=== PATIENT | male | born 1975 | race Caucasian/White ===

== ENCOUNTER 2016-10-01 19:14 | Inpatient (IN) | payer OTHER ==
[2016-10-01 19:36] VITALS: BMI 29.8
--- NOTE | 2016-10-01 19:45 | HP ---
CIWA Score - CIWA Score Nausea/Vomitin-Mild Nausea/No Vomiting Muscle Tremors: 4-Moderate,w/Arms Extend Anxiety: 3 Agitation: 4-Moderately Restless Paroxysmal Sweats: 1-Minimal Palms Moist Orientation: 3-Disoriented Date>2 days Tacttile Disturbances: 0-None Auditory Disturbances: 0-None Visual Disturbances: 0-None Headache: 3-Moderate CIWA-Ar Total Score: 19 Admission ROS BHS - HPI Chief Complaint: withdrawal sx Allergies/Adverse Reactions: Allergies Allergy/AdvReac Type Severity Reaction Status Date / Time No Known Allergies Allergy Verified 09/20/14 14:11 History of Present Illness: 41 years old male with long history of alcohol nicotine dependence has diabetes ii hypertension hyperlipidemia and bipolar ii disorder is admitted to detox Exam Limitations: No Limitations - Ebola screening Have you traveled outside of the country in the last 21 days: No Have you had contact with anyone from an Ebola affected area: No Have you been sick,other than usual withdrawal symptoms: No Do you have a fever: No - Review of Systems Constitutional: Chills, Changes in sleep, Weight Stable EENT: reports: No Symptoms Reported Respiratory: reports: No Symptoms reported Cardiac: reports: No Symptoms Reported GI: reports: Nausea, Poor Fluid Intake, Abdominal cramping : reports: No Symptoms Reported Musculoskeletal: reports: No Symptoms Reported Integumentary: reports: No Symptoms Reported Neuro: reports: Tremors Endocrine: reports: No Symptoms Reported Hematology: reports: No Symptoms Reported Psychiatric: reports: Judgement Intact, Mood/Affect Appropiate Other Systems: Reviewed and Negative Patient History - Patient Medical History Hx Anemia: No Hx Asthma: No Hx Chronic Obstructive Pulmonary Disease (COPD): No Hx Cancer: No Hx Cardiac Disorders: No Hx Congestive Heart Failure: No Hx Hypertension: Yes Hx Hypercholesterolemia: Yes Hx Pacemaker: No HX Cerebrovascular Accident: No Hx Seizures: No Hx Dementia: No Hx Diabetes: Yes Hx Gastrointestinal Disorders: No Hx Liver Disease: No Hx Genitourinary Disorders: No Hx Sexually Transmitted Disorders: No Hx Renal Disease (ESRD): No Hx Thyroid Disease: No Hx Human Immunodeficiency Virus (HIV): No Hx Hepatitis C: No Hx Depression: No Hx Suicide Attempt: No Hx Bipolar Disorder: Yes Hx Schizophrenia: No - Patient Surgical History Past Surgical History: No Hx Neurologic Surgery: No Hx Cataract Extraction: No Hx Cardiac Surgery: No Hx Lung Surgery: No Hx Breast Surgery: No Hx Breast Biopsy: No Hx Abdominal Surgery: No Hx Appendectomy: No Hx Cholecystectomy: No Hx Genitourinary Surgery: No Hx Orthopedic Surgery: No - PPD History Previous Implant?: Yes Documented Results: Negative w/proof Implanted On Prior [facility] Admission?: Yes Date: 08/10/15 Results: 0 mm PPD to be Administered?: Yes - Smoking Cessation Smoking history: Current every day smoker Have you smoked in the past 12 months: Yes Aproximately how many cigarettes per day: 2 Cigars Per Day: 0 Hx Chewing Tobacco Use: No Initiated information on smoking cessation: Yes 'Breaking Loose' booklet given: 10/01/16 - Substance & Tx. History Hx Alcohol Use: Yes Hx Substance Use: Yes Substance Use Type: Alcohol, Marijuana Hx Substance Use Treatment: Yes - Substances Abused Alcohol Route: Oral Frequency: Daily Amount used: pint volka Age of first use: 17 Date of Last Use: 10/01/16 Family Disease History - Family Disease History Family Disease History: Diabetes: Sister, [place]: Mother (d eceased), Other: Father (never met) Admission Physical Exam S - Vital Signs Vital Signs: Vital Signs - 24 hr 10/01/16 19:34 Temperature 98.3 F Pulse Rate 96 H Respiratory 20 Rate Blood Pressure 161/93 - Physical General Appearance: Yes: Nourished, Appropriately Dressed, Mild Distress, Moderate Distress, Alcohol on Breath, Tremorous, Irritable, Sweating, Anxious HEENTM: Yes: Hearing grossly Normal, Normal ENT Inspection, Normocephalic, Normal Voice Respiratory: Yes: Chest Non-Tender, Lungs Clear, Normal Breath Sounds, No Respiratory Distress, No Accessory Muscle Use Neck: Yes: Supple, Trachea in good position Breast: Yes: Breasts Symetrical Cardiology: Yes: Regular Rhythm, S1, S2, Tachycardia Abdominal: Yes: Non Tender, Soft Genitourinary: Yes: Within Normal Limits Back: Yes: Normal Inspection Musculoskeletal: Yes: full range of Motion, Gait Steady Extremities: Yes: Normal Range of Motion, Non-Tender, Tremors Neurological: Yes: Alert, Motor Strength 5/5, Normal Response, Depressed Affect Integumentary: Yes: Warm Lymphatic: Yes: Within Normal Limits - Diagnostic (1) Alcohol dependence with uncomplicated withdrawal Current Visit: Yes Status: Acute (2) Cannabis dependence, uncomplicated Current Visit: Yes Status: Chronic (3) Nicotine dependence Current Visit: Yes Status: Acute (4) PCP abuse Current Visit: Yes Status: Chronic (5) Type II diabetes mellitus Current Visit: Yes Status: Acute Qualifiers: Diabetes mellitus complication status: without complication Diabetes mellitus mcfp insulin use: with terminal gauger supervisor use Qualified Code(s): E11.9 - Type 2 diabetes mellitus without complications; Z79.4 - terminal gauger supervisor ( current) use of insulin Comment: kazano 1000 mg bid (6) Hypertension Current Visit: Yes Status: Acute Qualifiers: Hypertension type: essential hypertension Qualified Code(s): I10 - Essential (primary) hypertension (7) Hyperlipidemia Current Visit: Yes Status: Acute Qualifiers: Hyperlipidemia type: pure hypercholesterolemia Qualified Code(s): E78.00 - Pure hypercholesterolemia, unspecified; E78.0 - Pure hypercholesterolemia Comment: lab pending Cleared for Admission [facility] - Detox or Rehab [facility] Level of Care: Medically Managed Detox Regimen/Protocol: Librium [facility] Breath Alcohol Content Breath Alcohol Content: 0.008 Urine Drug Screen - Results Drug Screen Negative: No Urine Drug Screen Results: THC-Marijuana, PCP-Phencyclidine
[2016-10-01] MEDS ORDERED: P-EPHED 60MG/TRIPROLIDI 2.5MG TABLET PO PRN (19:52)
[2016-10-01] MEDS ORDERED: hydrOXYzine PAMOATE 50 MG CAPSULE (FP) PO PRN (19:52)
[2016-10-01] MEDS ORDERED: ACETAMINOPHEN 325 MG TABLET (FP) PO PRN (19:52)
[2016-10-01] MEDS ORDERED: chlordiazePOXIDE HCL 25 MG CAPSULE PO PRN (19:52)
[2016-10-01] MEDS ORDERED: IBUPROFEN 400 MG TABLET (FP) PO PRN (19:52)
[2016-10-01] MEDS ORDERED: MAGNESIUM CITRATE 300 ML BOTTLE PO PRN (19:52)
[2016-10-01] MEDS ORDERED: NICOTINE POLACRILEX 2 MG GUM BC PRN (19:52)
[2016-10-01] MEDS ORDERED: LOPERAMIDE HCL 2 MG CAPSULE PO PRN (19:52)
[2016-10-01] MEDS ORDERED: MAGNESIUM HYDROX 2400MG/30ML ORAL SUSPENSION 30 ML CUP PO PRN (19:52)
[2016-10-01] MEDS ORDERED: MENTHOL/PHENOL 1 EACH UD MM PRN (19:52)
[2016-10-01] MEDS ORDERED: diphenhydrAMINE HCL 50 MG CAPSULE PO PRN (19:52)
[2016-10-01] MEDS ORDERED: guaiFENesin/D-METHORPHAN HB 10 ML UNIT-DOSE CUPS PO PRN (19:52)
[2016-10-01] MEDS ORDERED: MAG HYDROX/AL HYDROX/SIMETH 30 ML UNIT-DOSE CUP PO PRN (19:52)
[2016-10-01] MEDS ORDERED: cloNIDine HCL 0.1 MG TABLET PO PRN (19:58)
[2016-10-01] MEDS ORDERED: INSULIN DETEMIR 100 UNITS/ML MDV SQ SCH (22:00)
[2016-10-01] MEDS ORDERED: THIAMINE HCL 100 MG TABLET (FP) PO SCH (22:00)
[2016-10-01] MEDS ORDERED: ATORVASTATIN CA 10 MG TABLET (FP) PO SCH (22:00)
[2016-10-01] MEDS: amLODIPine BESYLATE 5 MG TABLET (FP) PO SCH (23:00)
[2016-10-01] MEDS: chlordiazePOXIDE HCL 25 MG CAPSULE PO SCH (23:00)
[2016-10-01] MEDS: INSULIN SLIDING SCALE (NOVOLOG) 1 VIAL SQ SCH (23:02)
[2016-10-01 23:05] LABS: URINE APPEARANCE CLEAR; URINE BILIRUBIN NEGATIVE (NEGATIVE); URINE BLOOD NEGATIVE (NEGATIVE); URINE COLOR YELLOW; URINE GLUCOSE (UA) NEGATIVE (NEGATIVE); URINE KETONE NEGATIVE (NEGATIVE); URINE LEUK ESTERASE NEGATIVE (NEGATIVE); URINE NITRITE NEGATIVE (NEGATIVE); URINE PROTEIN NEGATIVE (NEGATIVE); URINE UROBILINOGEN 2.0 E.U/dl E.U./dl (0.2-1.0)
[2016-10-02] MEDS: chlordiazePOXIDE HCL 25 MG CAPSULE PO SCH ×3 (05:52→17:04)
[2016-10-02] MEDS ORDERED: INSULIN (NOVOLOG) ASPART 100 UNITS/ML 10ML VIAL ONE ×3 (07:37→17:03)
[2016-10-02] MEDS ORDERED: NICOTINE 14 MG/24 HOURS TOPICAL PATCH TD SCH (10:00)
[2016-10-02] MEDS ORDERED: PRENATAL VITAMINS W/ FOLIC ACID TABLET (FP) PO SCH (10:00)
[2016-10-02] MEDS ORDERED: diphenhydrAMINE HCL 25 MG CAPSULE (FP) PO PRN (10:22)
[2016-10-02 10:26] LABS: MCH 28.4 pg (25.7-33.7); MCHC 32.7 g/dl (32.0-35.9); MEAN PLT VOLUME 8.3 fl (7.5-11.1); PLATELET COUNT 238 K/MM3 (134-434); RDW 12.8 % (11.9-15.9); WHITE BLOOD COUNT 8.7 K/mm3 (4.0-10.0)
[2016-10-02] MEDS ORDERED: HYDROCORTISONE 1% TOPICAL CREAM 30 GM TUBE TP SCH (10:30)
[2016-10-02 10:45] LABS: ALBUMIN 3.6 g/dl (3.4-5.0); ALK PHOS 61 U/L (45-117); ANION GAP 7 (8-16); BILIRUBIN,TOTAL 0.5 mg/dL (0.2-1.0); CHOLESTEROL 113 mg/dL (50-200); CO2 28 mmol/L (21-32); CREATININE 0.7 mg/dL (0.7-1.3); GLUCOSE,RANDOM 112 mg/dL (74-106); LDL CHOLESTEROL (ONLY SJRH) 45 mg/dL (5-100); SGOT/AST 10 U/L (15-37); SGPT/ALT 22 U/L (12-78); TOT PROT 6.6 g/dl (6.4-8.2)
[2016-10-02] MEDS: amLODIPine BESYLATE 5 MG TABLET (FP) PO SCH (10:58)
--- NOTE | 2016-10-02 11:07 | PN ---
[facility] CIWA - CIWA Score Nausea/Vomitin Muscle Tremors: 3 Anxiety: 3 Agitation: 2 Paroxysmal Sweats: 1-Minimal Palms Moist Orientation: 0-Oriented Tacttile Disturbances: 1-Very Mild Itch/Numbness Auditory Disturbances: 1-Very Mild Visual Disturbances: 1-Very Mild Sensitivity Headache: 2-Mild CIWA-Ar Total Score: 17 BHS Progress Note (SOAP) Subjective: ALERT,IRRITABLE,ANXIOUS,INTERRUPTED SLEEP,TREMOR,RASH BOTH THIGH ITCHING CONTACT DERMATITIS Objective: 10/02/16 11:06 Vital Signs Temperature 98.1 F 10/02/16 10:00 Pulse Rate 71 10/02/16 10:00 Respiratory Rate 16 10/02/16 10:00 Blood Pressure 125/79 10/02/16 10:00 O2 Sat by Pulse Oximetry (%) EKG NSR WITH SINUS ARRHYTHMIA Laboratory Last Values WBC 8.7 K/mm3 (4.0-10.0) 10/02/16 09:30 RBC 5.07 M/mm3 (4.00-5.60) 10/02/16 09:30 Hgb 14.4 GM/dL (11.7-16.9) 10/02/16 09:30 Hct 44.1 % (35.4-49) 10/02/16 09:30 MCV 87.0 fl (80-96) 10/02/16 09:30 MCHC 32.7 g/dl (32.0-35.9) 10/02/16 09:30 RDW 12.8 % (11.9-15.9) 10/02/16 09:30 Plt Count 238 K/MM3 (134-434) 10/02/16 09:30 MPV 8.3 fl (7.5-11.1) 10/02/16 09:30 Sodium 145 mmol/L (136-145) 10/02/16 07:30 Potassium 4.0 mmol/L (3.5-5.1) 10/02/16 07:30 Chloride 110 mmol/L (98-107) H 10/02/16 07:30 Carbon Dioxide 28 mmol/L (21-32) 10/02/16 07:30 Anion Gap 7 (8-16) L 10/02/16 07:30 BUN 20 mg/dL (7-18) H 10/02/16 07:30 Creatinine 0.7 mg/dL (0.7-1.3) D 10/02/16 07:30 Creat Clearance w eGFR > 60 (>60) 10/02/16 07:30 POC Glucometer 117 UNITS (()) 10/02/16 05:53 Random Glucose 112 mg/dL (74-106) H D 10/02/16 07:30 Calcium 9.0 mg/dL (8.5-10.1) 10/02/16 07:30 Total Bilirubin 0.5 mg/dL (0.2-1.0) D 10/02/16 07:30 AST 10 U/L (15-37) L D 10/02/16 07:30 ALT 22 U/L (12-78) D 10/02/16 07:30 Alkaline Phosphatase 61 U/L (45-117) 10/02/16 07:30 Total Protein 6.6 g/dl (6.4-8.2) 10/02/16 07:30 Albumin 3.6 g/dl (3.4-5.0) 10/02/16 07:30 Triglycerides 97 mg/dL (35-160) 10/02/16 07:30 Cholesterol 113 mg/dL (50-200) 10/02/16 07:30 Total LDL Cholesterol 45 mg/dL (5-100) 10/02/16 07:30 HDL Cholesterol 58 mg/dL (40-60) 10/02/16 07:30 Urine Color Yellow 10/01/16 21:35 Urine Appearance Clear 10/01/16 21:35 Urine pH 6.0 (5.0-8.0) 10/01/16 21:35 Ur Specific [place] 1.031 (1.001-1.035) 10/01/16 21:35 Urine Protein Negative (NEGATIVE) 10/01/16 21:35 Urine Glucose (UA) Negative (NEGATIVE) 10/01/16 21:35 Urine Ketones Negative (NEGATIVE) 10/01/16 21:35 Urine Blood Negative (NEGATIVE) 10/01/16 21:35 Urine Nitrite Negative (NEGATIVE) 10/01/16 21:35 Urine Bilirubin Negative (NEGATIVE) 10/01/16 21:35 Urine Urobilinogen 2.0 e.u/dl E.U./dl (0.2-1.0) 10/01/16 21:35 Ur Leukocyte Esterase Negative (NEGATIVE) 10/01/16 21:35 Assessment: 10/02/16 11:07 WITHDRAWAL SYMPTOM Plan: CONTINUE DETOX
[2016-10-02] MEDS: INSULIN SLIDING SCALE (NOVOLOG) 1 VIAL SQ SCH ×2 (11:35→17:05)
--- NOTE | 2016-10-02 14:41 | CONSULT ---
[facility] Psychiatric Consult - Data Date of interview: 10/02/16 Admission source: [facility] Identifying data: Patient is approached for psychiatric interview.He refused." I am leving this place.There is no need to talk to you.I have nothing to say to a psychiatrist.Never mind." Staff is made aware.
[2016-10-02] MEDS ORDERED: sitaGLIPtin PHOSPHATE 100 MG TABLET (FP) PO SCH (16:30)
[2016-10-02 18:53] VITALS: BP 136/92; PULSE 73; TEMP 97.9
--- NOTE | 2016-10-02 21:27 | DS ---
[id number] Present History: Alcohol Dependence Additional Comments: patient insisted to leave the unit, refused to wait face to face with the provider agreed to consider follow up care as per arranged by the counselor refused e prescription encourage follow up closely with primary care provider and utilize emergency services if necessary Pertinent Past History: hypertension diabetes ii hyperlipidemia bipolar ii - Physical Exam Results Vital Signs: Vital Signs Temperature 97.9 F 10/02/16 18:53 Pulse Rate 73 10/02/16 18:53 Respiratory Rate 16 10/02/16 18:53 Blood Pressure 136/92 10/02/16 18:53 O2 Sat by Pulse Oximetry (%) Pertinent Admission Physical Exam Findings: withdrawal sx Laboratory Last Values WBC 8.7 K/mm3 (4.0-10.0) 10/02/16 09:30 RBC 5.07 M/mm3 (4.00-5.60) 10/02/16 09:30 Hgb 14.4 GM/dL (11.7-16.9) 10/02/16 09:30 Hct 44.1 % (35.4-49) 10/02/16 09:30 MCV 87.0 fl (80-96) 10/02/16 09:30 MCHC 32.7 g/dl (32.0-35.9) 10/02/16 09:30 RDW 12.8 % (11.9-15.9) 10/02/16 09:30 Plt Count 238 K/MM3 (134-434) 10/02/16 09:30 MPV 8.3 fl (7.5-11.1) 10/02/16 09:30 Sodium 145 mmol/L (136-145) 10/02/16 07:30 Potassium 4.0 mmol/L (3.5-5.1) 10/02/16 07:30 Chloride 110 mmol/L (98-107) H 10/02/16 07:30 Carbon Dioxide 28 mmol/L (21-32) 10/02/16 07:30 Anion Gap 7 (8-16) L 10/02/16 07:30 BUN 20 mg/dL (7-18) H 10/02/16 07:30 Creatinine 0.7 mg/dL (0.7-1.3) D 10/02/16 07:30 Creat Clearance w eGFR > 60 (>60) 10/02/16 07:30 POC Glucometer 154 UNITS (()) 10/02/16 16:48 Random Glucose 112 mg/dL (74-106) H D 10/02/16 07:30 Calcium 9.0 mg/dL (8.5-10.1) 10/02/16 07:30 Total Bilirubin 0.5 mg/dL (0.2-1.0) D 10/02/16 07:30 AST 10 U/L (15-37) L D 10/02/16 07:30 ALT 22 U/L (12-78) D 10/02/16 07:30 Alkaline Phosphatase 61 U/L (45-117) 10/02/16 07:30 Total Protein 6.6 g/dl (6.4-8.2) 10/02/16 07:30 Albumin 3.6 g/dl (3.4-5.0) 10/02/16 07:30 Triglycerides 97 mg/dL (35-160) 10/02/16 07:30 Cholesterol 113 mg/dL (50-200) 10/02/16 07:30 Total LDL Cholesterol 45 mg/dL (5-100) 10/02/16 07:30 HDL Cholesterol 58 mg/dL (40-60) 10/02/16 07:30 Urine Color Yellow 10/01/16 21:35 Urine Appearance Clear 10/01/16 21:35 Urine pH 6.0 (5.0-8.0) 10/01/16 21:35 Ur Specific [place] 1.031 (1.001-1.035) 10/01/16 21:35 Urine Protein Negative (NEGATIVE) 10/01/16 21:35 Urine Glucose (UA) Negative (NEGATIVE) 10/01/16 21:35 Urine Ketones Negative (NEGATIVE) 10/01/16 21:35 Urine Blood Negative (NEGATIVE) 10/01/16 21:35 Urine Nitrite Negative (NEGATIVE) 10/01/16 21:35 Urine Bilirubin Negative (NEGATIVE) 10/01/16 21:35 Urine Urobilinogen 2.0 e.u/dl E.U./dl (0.2-1.0) 10/01/16 21:35 Ur Leukocyte Esterase Negative (NEGATIVE) 10/01/16 21:35 RPR Titer Nonreactive (NONREACTIVE) 10/02/16 07:30 lab noted - Treatment Hospital Course: Detox Protocol Followed, Responded well - Medication Discharge Medications: Ambulatory Orders Saxagliptin HCl/Metformin HCl [Kombiglyze Xr 5-1,000 mg Tab] 2 tab PO BIDAC - Diagnosis (1) Alcohol dependence with uncomplicated withdrawal Status: Acute (2) Cannabis dependence, uncomplicated Status: Chronic (3) Nicotine dependence Status: Acute (4) Type II diabetes mellitus Status: Acute Qualifiers: Diabetes mellitus complication status: without complication Diabetes mellitus custodial insulin use: with custodial use Qualified Code(s): E11.9 - Type 2 diabetes mellitus without complications (5) Hypertension Status: Acute Qualifiers: Hypertension type: essential hypertension Qualified Code(s): I10 - Essential (primary) hypertension (6) Hyperlipidemia Status: Acute Qualifiers: Hyperlipidemia type: pure hypercholesterolemia Qualified Code(s): E78.00 - Pure hypercholesterolemia, unspecified; E78.0 - Pure hypercholesterolemia - AMA Did Patient Leave Against Medical Advice: Yes
[2016-10-02] MEDS ORDERED: chlordiazePOXIDE HCL 25 MG CAPSULE PO SCH (23:00)
[2016-10-03] MEDS ORDERED: chlordiazePOXIDE 5 MG CAPSULE PO SCH (23:00)
[2016-10-04] MEDS ORDERED: chlordiazePOXIDE HCL 10 MG CAPSULE PO SCH (23:00)
--- NOTE | 2016-10-06 17:00 | EKG ---
Test Reason : Blood Pressure : / mmHG Vent. Rate : 068 BPM Atrial Rate : 068 BPM P-R Int : 138 ms QRS Dur : 108 ms QT Int : 412 ms P-R-T Axes : 046 063 019 degrees QTc Int : 438 ms NORMAL SINUS RHYTHM WITH SINUS ARRHYTHMIA NORMAL ECG NO PREVIOUS ECGS AVAILABLE Confirmed by AVINASH DENISE MD ([id number]) on 10/06/2016 4:59:32 PM Referred By: Confirmed By:AVINASH DENISE MD
== END 2016-10-02 17:30 | disposition left against medical advice (07) | DRG 770 ==
LOC: YASAS 19:14 → Y6N 20:15
PROVIDERS: ADMIT Internal Medicine Addiction Medicine; ATTEND Internal Medicine Addiction Medicine
PROC: HZ2ZZZZ Detoxification Services for Substance Abuse Treatment (ICD-10-PCS; principal; 2016-10-02)
DX: F10.230 Alcohol dependence with withdrawal, uncomplicated (principal); F12.20 Cannabis dependence, uncomplicated; F17.210 Nicotine dependence, cigarettes, uncomplicated; I10 Essential (primary) hypertension; E11.9 Type 2 diabetes mellitus without complications; Z79.4 Long term (current) use of insulin; E78.00 Pure hypercholesterolemia, unspecified; Z59.0 Homelessness
CPT/HCPCS: 36415; 80053; 80061; 81003; 83721; 85027; 86593; 93005; 93010

== ENCOUNTER 2016-12-25 11:46 | Inpatient (IN) | payer OTHER ==
[2016-12-25 13:26] VITALS: BMI 28.7
--- NOTE | 2016-12-25 14:25 | HP ---
Admission ROS [facility] Chief Complaint: i am here for rehab from pcp,marijuana,alcohol Allergies/Adverse Reactions: Allergies Allergy/AdvReac Type Severity Reaction Status Date / Time No Known Allergies Allergy Verified 12/25/16 14:23 History of Present Illness: this 41 years old male with marijuana,pcp dependence and alcohol dependence,for rehab,last detox 10/01/16 to 10/02/16 not completed chronic low back pain nicotine dependence longest period of sobriety 2 years Exam Limitations: No Limitations - Ebola screening Have you traveled outside of the country in the last 21 days: No Have you had contact with anyone from an Ebola affected area: No Have you been sick,other than usual withdrawal symptoms: No Do you have a fever: No - Review of Systems Constitutional: No Symptoms Reported EENT: reports: No Symptoms Reported Respiratory: reports: No Symptoms reported Cardiac: reports: No Symptoms Reported GI: reports: No Symptoms Reported : reports: No Symptoms Reported Musculoskeletal: reports: No Symptoms Reported Integumentary: reports: No Symptoms Reported Neuro: reports: No Symptoms reported Endocrine: reports: No Symptoms Reported Hematology: reports: No Symptoms Reported Psychiatric: reports: No Sypmtoms Reported, Judgement Intact, Mood/Affect Appropiate, other (bipolar disorder) Patient History - Patient Medical History Hx Anemia: No Hx Asthma: No Hx Chronic Obstructive Pulmonary Disease (COPD): No Hx Cancer: No Hx Cardiac Disorders: No Hx Congestive Heart Failure: No Hx Hypertension: Yes (on med) Hx Hypercholesterolemia: Yes (on med) Hx Pacemaker: No HX Cerebrovascular Accident: No Hx Seizures: No Hx Dementia: No Hx Diabetes: Yes (on med) Hx Gastrointestinal Disorders: No Hx Liver Disease: No Hx Genitourinary Disorders: No Hx Sexually Transmitted Disorders: No Hx Renal Disease (ESRD): No Hx Thyroid Disease: No Hx Human Immunodeficiency Virus (HIV): No (last 08/04 negative) Hx Hepatitis C: No Hx Depression: No Hx Suicide Attempt: Yes (hiram f age of 15) Hx Bipolar Disorder: Yes Hx Schizophrenia: No Other Medical History: no suicidal,no homicidal - Patient Surgical History Past Surgical History: No Hx Neurologic Surgery: No Hx Cataract Extraction: No Hx Cardiac Surgery: No Hx Lung Surgery: No Hx Breast Surgery: No Hx Breast Biopsy: No Hx Abdominal Surgery: No Hx Appendectomy: No Hx Cholecystectomy: No Hx Genitourinary Surgery: No Hx Section: No Hx Orthopedic Surgery: No Anesthesia Reaction: No - PPD History Previous Implant?: Yes Documented Results: Negative w/proof Date: 10/03/16 Results: 0 mm PPD to be Administered?: No - Smoking Cessation Smoking history: Current every day smoker Have you smoked in the past 12 months: Yes Aproximately how many cigarettes per day: 2 Cigars Per Day: 0 Hx Chewing Tobacco Use: No Initiated information on smoking cessation: Yes 'Breaking Loose' booklet given: 12/25/16 - Substance & Tx. History Hx Alcohol Use: Yes Hx Substance Use: Yes Substance Use Type: Alcohol, Marijuana Hx Substance Use Treatment: Yes ([facility] 10/01/16 to 10/02/16) - Substances Abused Alcohol Route: Oral Frequency: 3-6 times per week Amount used: 1/5th of vodka Age of first use: 17 Date of Last Use: 12/21/16 Marijuana/Hashish Route: Smoking Frequency: Daily Amount used: 10$ Age of first use: 16 Date of Last Use: 12/25/16 PCP Route: Smoking Frequency: Daily Amount used: 20$ Age of first use: 16 Date of Last Use: 12/24/16 Family Disease History - Family Disease History Family Disease History: Diabetes: Sister, [place]: Mother (d eceased breast cancer), Other: Father (never met) Admission Physical Exam S - Vital Signs Vital Signs: Vital Signs - 24 hr 12/25/16 13:23 Temperature 97.8 F Pulse Rate 89 Respiratory 18 Rate Blood Pressure 118/70 - Physical General Appearance: Yes: Within Normal Limits HEENTM: Yes: Normal ENT Inspection, GIORGIO, Pharynx Normal Respiratory: Yes: Within Normal Limits, Lungs Clear, Normal Breath Sounds Neck: Yes: Within Normal Limits Breast: Yes: Within Normal Limits Cardiology: Yes: Within Normal Limits, Regular Rhythm, Regular Rate, S1, S2 Abdominal: Yes: Within Normal Limits, Normal Bowel Sounds, Non Tender, Flat, Soft Genitourinary: Yes: Within Normal Limits Back: Yes: Within Normal Limits Musculoskeletal: Yes: Within Normal Limits Extremities: Yes: Within Normal Limits Neurological: Yes: staff technologist II-XII NML intact, Fully Oriented, Alert, Motor Strength 5/5 Integumentary: Yes: Within Normal Limits Lymphatic: Yes: Within Normal Limits - Diagnostic (1) Alcohol dependence Current Visit: Yes Status: Acute (2) Bipolar disorder Current Visit: No Status: Acute (3) Hyperlipidemia Current Visit: No Status: Acute Qualifiers: Hyperlipidemia type: pure hypercholesterolemia Qualified Code(s): E78.00 - Pure hypercholesterolemia, unspecified; E78.0 - Pure hypercholesterolemia Comment: lab pending (4) Hypertension Current Visit: No Status: Acute Qualifiers: Hypertension type: essential hypertension Qualified Code(s): I10 - Essential (primary) hypertension (5) Type II diabetes mellitus Current Visit: No Status: Acute Qualifiers: Diabetes mellitus complication status: without complication Diabetes mellitus intermediate manager insulin use: with chcf use Qualified Code(s): E11.9 - Type 2 diabetes mellitus without complications Comment: kazano 1000 mg bid (6) Weight decreased Current Visit: No Status: Acute (7) Cannabis dependence, uncomplicated Current Visit: No Status: Chronic (8) PCP abuse Current Visit: No Status: Chronic (9) Nicotine dependence Current Visit: No Status: Acute Cleared for Admission BHS - Detox or Rehab Claeared for Rehab Admission: Yes S Breath Alcohol Content Breath Alcohol Content: 0 Urine Drug Screen - Results Drug Screen Negative: No Urine Drug Screen Results: THC-Marijuana, PCP-Phencyclidine, TCA-Tricyclic Antidepress
[2016-12-25] MEDS ORDERED: LOPERAMIDE HCL 2 MG CAPSULE PO PRN (14:41)
[2016-12-25] MEDS ORDERED: P-EPHED 60MG/TRIPROLIDI 2.5MG TABLET PO PRN (14:41)
[2016-12-25] MEDS ORDERED: hydrOXYzine PAMOATE 50 MG CAPSULE (FP) PO PRN (14:41)
[2016-12-25] MEDS ORDERED: ACETAMINOPHEN 325 MG TABLET (FP) PO PRN (14:41)
[2016-12-25] MEDS ORDERED: diphenhydrAMINE HCL 50 MG CAPSULE PO PRN (14:41)
[2016-12-25] MEDS ORDERED: IBUPROFEN 400 MG TABLET (FP) PO PRN (14:41)
[2016-12-25] MEDS ORDERED: MAGNESIUM HYDROX 2400MG/30ML ORAL SUSPENSION 30 ML CUP PO PRN (14:41)
[2016-12-25] MEDS ORDERED: MAG HYDROX/AL HYDROX/SIMETH 30 ML UNIT-DOSE CUP PO PRN (14:41)
[2016-12-25] MEDS ORDERED: MAGNESIUM CITRATE 300 ML BOTTLE PO PRN (14:41)
[2016-12-25] MEDS ORDERED: MENTHOL/PHENOL 1 EACH UD MM PRN (14:41)
[2016-12-25] MEDS ORDERED: guaiFENesin/D-METHORPHAN HB 10 ML UNIT-DOSE CUPS PO PRN (14:41)
[2016-12-25 16:18] LABS: MCH 28.3 pg (25.7-33.7); MCHC 32.4 g/dl (32.0-35.9); MEAN CELL VOLUME 87.6 fl (80-96); MEAN PLT VOLUME 8.5 fl (7.5-11.1); PLATELET COUNT 255 K/MM3 (134-434); RDW 13.9 % (11.9-15.9); WHITE BLOOD COUNT 7.2 K/mm3 (4.0-10.0)
[2016-12-25 16:23] LABS: ALBUMIN 3.8 g/dl (3.4-5.0); ANION GAP 10 (8-16); CALCIUM 9.1 mg/dL (8.5-10.1); CO2 24 mmol/L (21-32); COCKROFT - GAULT 157.49; CREATININE 0.8 mg/dL (0.7-1.3); GLUCOSE,RANDOM 134 mg/dL (74-106); SGOT/AST 58 U/L (15-37); SGPT/ALT 37 U/L (12-78)
[2016-12-25 16:25] LABS: ALK PHOS 62 U/L (45-117); BILIRUBIN,TOTAL 1.4 mg/dL (0.2-1.0); TOT PROT 6.7 g/dl (6.4-8.2)
[2016-12-25] MEDS: GABAPENTIN 300 MG CAPSULE (FP) PO SCH ×2 (16:58→21:17)
[2016-12-25] MEDS: CYCLOBENZAPRINE HCL 10 MG TABLET (FP) PO PRN (16:59)
[2016-12-25] MEDS: NICOTINE 14 MG/24 HOURS TOPICAL PATCH TD SCH (17:01)
[2016-12-25 17:33] LABS: URINE APPEARANCE CLEAR; URINE BILIRUBIN NEGATIVE (NEGATIVE); URINE BLOOD NEGATIVE (NEGATIVE); URINE COLOR YELLOW; URINE GLUCOSE (UA) NEGATIVE (NEGATIVE); URINE KETONE TRACE (NEGATIVE); URINE LEUK ESTERASE NEGATIVE (NEGATIVE); URINE NITRITE NEGATIVE (NEGATIVE); URINE PROTEIN NEGATIVE (NEGATIVE); URINE UROBILINOGEN NEGATIVE E.U./dl (0.2-1.0)
[2016-12-25] MEDS: PATIENT'S OWN MEDICATION (NON-FORMULARY) (Sitagliptin Phos/Metformin Hcl [Janumet 50-500 M PO SCH (17:53)
[2016-12-25] MEDS: INSULIN SLIDING SCALE (NOVOLOG) 1 VIAL SQ SCH (21:21)
[2016-12-25] MEDS ORDERED: THIAMINE HCL 100 MG TABLET (FP) PO SCH (22:00)
[2016-12-25] MEDS ORDERED: ATORVASTATIN CA 10 MG TABLET (FP) PO SCH (22:00)
[2016-12-25] MEDS ORDERED: INSULIN DETEMIR 100 UNITS/ML MDV SQ SCH (22:00)
[2016-12-26] MEDS: GABAPENTIN 300 MG CAPSULE (FP) PO SCH ×2 (06:28→14:21)
[2016-12-26] MEDS: PATIENT'S OWN MEDICATION (NON-FORMULARY) (Sitagliptin Phos/Metformin Hcl [Janumet 50-500 M PO SCH ×2 (06:29→17:01)
[2016-12-26] MEDS: CYCLOBENZAPRINE HCL 10 MG TABLET (FP) PO PRN ×2 (06:30→17:01)
[2016-12-26] MEDS: INSULIN SLIDING SCALE (NOVOLOG) 1 VIAL SQ SCH ×3 (06:40→17:00)
[2016-12-26 07:02] VITALS: BP 124/77; PULSE 68; TEMP 97.4
[2016-12-26] MEDS ORDERED: PRENATAL VITAMINS W/ FOLIC ACID TABLET (FP) PO SCH (10:00)
[2016-12-26] MEDS: NICOTINE 14 MG/24 HOURS TOPICAL PATCH TD SCH ×2 (10:33→12:43)
--- NOTE | 2016-12-26 18:15 | PN ---
BHS Progress Note Note: patient did not want to complete treatment,signed release ama,psychiatrist plant controls specialist notified by nurse
== END 2016-12-26 17:50 | disposition left against medical advice (07) | DRG 770 ==
LOC: YASAS 11:46 → Y5N 14:53
PROVIDERS: ADMIT Psychiatry & Neurology Psychiatry; ATTEND Psychiatry & Neurology Psychiatry
PROC: HZ42ZZZ Group Counseling for Substance Abuse Treatment, Cognitive-Behavioral (ICD-10-PCS; principal; 2016-12-25)
DX: F10.20 Alcohol dependence, uncomplicated (principal); F12.20 Cannabis dependence, uncomplicated; F16.10 Hallucinogen abuse, uncomplicated; F17.210 Nicotine dependence, cigarettes, uncomplicated; F31.9 Bipolar disorder, unspecified; E78.5 Hyperlipidemia, unspecified; I10 Essential (primary) hypertension; E11.9 Type 2 diabetes mellitus without complications; Z79.4 Long term (current) use of insulin; Z87.898 Personal history of other specified conditions
CPT/HCPCS: 36415; 80053; 81003; 85027; 86593

== ENCOUNTER 2021-02-27 08:34 | Inpatient (IN) | payer OTHER ==
[2021-02-27 11:43] VITALS: BMI 30.8
[2021-02-27] MEDS ORDERED: LOPERAMIDE HCL 2 MG CAPSULE PO PRN (15:07)
[2021-02-27] MEDS ORDERED: IBUPROFEN 400 MG TABLET (FP) PO PRN (15:07)
[2021-02-27] MEDS ORDERED: MAGNESIUM CITRATE 300 ML BOTTLE PO PRN (15:07)
[2021-02-27] MEDS ORDERED: ACETAMINOPHEN 325 MG TABLET (FP) PO PRN (15:07)
[2021-02-27] MEDS ORDERED: guaiFENesin 200 MG/10 ML 10 ML UNIT-DOSE CUPS PO PRN (15:07)
[2021-02-27] MEDS ORDERED: MAGNESIUM HYDROX 2400MG/30ML ORAL SUSPENSION 30 ML CUP PO PRN (15:07)
[2021-02-27] MEDS ORDERED: P-EPHED 60MG/TRIPROLIDI 2.5MG TABLET PO PRN (15:07)
[2021-02-27] MEDS ORDERED: MAG HYDROX/AL HYDROX/SIMETH 30 ML UNIT-DOSE CUP PO PRN (15:07)
[2021-02-27] MEDS ORDERED: TUBERCULIN PPD 5 TU/0.1ML VIAL ID ONE ×2 (18:13→19:06)
[2021-02-27] MEDS: NICOTINE 14 MG/24 HOURS TOPICAL PATCH TD SCH (18:40)
[2021-02-27] MEDS: hydrOXYzine PAMOATE 25 MG CAPSULE (FP) PO SCH ×2 (18:40→22:32)
[2021-02-27] MEDS: PRENATAL VITAMINS W/ FOLIC ACID TABLET (FP) PO SCH (18:45)
[2021-02-27] MEDS ORDERED: PATIENT'S OWN MEDICATION (NON-FORMULARY) (Sitagliptin Phos/Metformin Hcl [Janumet 50-500 M PO SCH (22:00)
[2021-02-27] MEDS ORDERED: ATORVASTATIN CA 10 MG TABLET (FP) PO SCH (22:00)
[2021-02-27] MEDS: THIAMINE HCL 100 MG TABLET (FP) PO SCH (22:30)
[2021-02-27] MEDS: GABAPENTIN 300 MG CAPSULE PO SCH (22:30)
[2021-02-27] MEDS: MELATONIN 5 MG TABLETS PO SCH (22:32)
[2021-02-28] MEDS: GABAPENTIN 300 MG CAPSULE PO SCH ×2 (06:07→08:46)
[2021-02-28] MEDS: hydrOXYzine PAMOATE 25 MG CAPSULE (FP) PO SCH ×6 (06:07→21:16)
[2021-02-28] MEDS ORDERED: MASKS NR ONE (06:33)
[2021-02-28] MEDS: sitaGLIPtin PHOSPHATE 50 MG TABLET PO SCH ×3 (06:55→17:23)
[2021-02-28] MEDS: metFORMIN HCL 500 MG TABLET (FP) PO SCH ×3 (06:55→17:23)
[2021-02-28] MEDS ORDERED: QUEtiapine FUMARATE 100 MG TABLET (FP) PO ONE (07:12)
[2021-02-28] MEDS: NICOTINE 14 MG/24 HOURS TOPICAL PATCH TD SCH (10:05)
[2021-02-28] MEDS: PRENATAL VITAMINS W/ FOLIC ACID TABLET (FP) PO SCH (10:56)
[2021-02-28] MEDS: ENALAPRIL MALEATE 2.5 MG TABLET PO SCH (10:56)
[2021-02-28] MEDS: QUEtiapine FUMARATE 300 MG TABLET PO SCH (10:57)
[2021-02-28] MEDS: INSULIN (NOVOLOG) ASPART 100 UNITS/ML 10ML VIAL SQ SCH ×4 (11:59→21:21)
[2021-02-28] MEDS ORDERED: INSULIN (NOVOLOG) ASPART 100 UNITS/ML 10ML VIAL ONE (12:16)
[2021-02-28 12:32] LABS: HEMATOCRIT 42.4 % (35.4-49); MCH 28.8 pg (25.7-33.7); MEAN CELL VOLUME 87.3 fl (80-96); MEAN PLT VOLUME 8.6 fl (7.5-11.1); PLATELET COUNT 296 10^3/uL (134-434); RBC 4.85 M/mm3 (4.00-5.60); RDW 14.2 % (11.9-15.9)
[2021-02-28 12:42] LABS: CALCIUM 8.9 mg/dL (8.5-10.1)
[2021-02-28 12:43] LABS: ALBUMIN 3.6 g/dl (3.4-5.0)
[2021-02-28 12:46] LABS: CREATININE 0.8 mg/dL (0.55-1.3)
[2021-02-28 12:48] LABS: BILIRUBIN,TOTAL 0.5 mg/dL (0.2-1); TOT PROT 6.8 g/dl (6.4-8.2)
[2021-02-28 13:31] LABS: HIV INTERPRETATION NEGATIVE (NEGATIVE)
[2021-02-28] MEDS: GABAPENTIN 400 MG CAPSULE PO SCH ×2 (14:20→21:16)
[2021-02-28] MEDS ORDERED: NICOTINE 10 MG CARTRIDGE (INHALER) IH PRN (21:13)
[2021-02-28] MEDS: INSULIN (LEVEMIR) 100 UNITS/ML UNITS SQ SCH (21:14)
[2021-02-28] MEDS: THIAMINE HCL 100 MG TABLET (FP) PO SCH (21:16)
[2021-02-28] MEDS: QUEtiapine FUMARATE 400 MG TABLET PO SCH (21:16)
[2021-02-28] MEDS: MELATONIN 5 MG TABLETS PO SCH (21:16)
[2021-02-28] MEDS: ATORVASTATIN CA 20 MG TABLET (FP) PO SCH (21:52)
[2021-03-01] MEDS: GABAPENTIN 400 MG CAPSULE PO SCH ×3 (07:48→21:07)
[2021-03-01] MEDS: hydrOXYzine PAMOATE 25 MG CAPSULE (FP) PO SCH ×5 (07:48→21:08)
[2021-03-01] MEDS: sitaGLIPtin PHOSPHATE 50 MG TABLET PO SCH ×2 (07:48→18:05)
[2021-03-01] MEDS: metFORMIN HCL 500 MG TABLET (FP) PO SCH ×2 (07:48→18:05)
[2021-03-01] MEDS: INSULIN (NOVOLOG) ASPART 100 UNITS/ML 10ML VIAL SQ SCH ×4 (07:51→21:45)
[2021-03-01] MEDS ORDERED: INSULIN (NOVOLOG) ASPART 100 UNITS/ML 10ML VIAL ONE (07:51)
[2021-03-01] MEDS: QUEtiapine FUMARATE 300 MG TABLET PO SCH (09:54)
[2021-03-01] MEDS: PRENATAL VITAMINS W/ FOLIC ACID TABLET (FP) PO SCH (09:55)
[2021-03-01] MEDS: NICOTINE 14 MG/24 HOURS TOPICAL PATCH TD SCH (09:55)
[2021-03-01] MEDS: ENALAPRIL MALEATE 2.5 MG TABLET PO SCH (09:58)
[2021-03-01] MEDS: QUEtiapine FUMARATE 400 MG TABLET PO SCH (21:07)
[2021-03-01] MEDS: ATORVASTATIN CA 20 MG TABLET (FP) PO SCH (21:07)
[2021-03-01] MEDS: THIAMINE HCL 100 MG TABLET (FP) PO SCH (21:07)
[2021-03-01] MEDS: MELATONIN 5 MG TABLETS PO SCH (21:08)
[2021-03-01] MEDS: INSULIN (LEVEMIR) 100 UNITS/ML UNITS SQ SCH (21:45)
[2021-03-02 06:59] VITALS: BP 107/75; PULSE 81; TEMP 97.1
[2021-03-02] MEDS: GABAPENTIN 400 MG CAPSULE PO SCH (08:13)
[2021-03-02] MEDS: hydrOXYzine PAMOATE 25 MG CAPSULE (FP) PO SCH ×2 (08:13→09:39)
[2021-03-02] MEDS: INSULIN (NOVOLOG) ASPART 100 UNITS/ML 10ML VIAL SQ SCH ×2 (08:14→11:35)
[2021-03-02] MEDS: sitaGLIPtin PHOSPHATE 50 MG TABLET PO SCH (08:14)
[2021-03-02] MEDS: metFORMIN HCL 500 MG TABLET (FP) PO SCH (08:14)
[2021-03-02] MEDS: NICOTINE 14 MG/24 HOURS TOPICAL PATCH TD SCH (09:39)
[2021-03-02] MEDS: QUEtiapine FUMARATE 300 MG TABLET PO SCH (09:39)
[2021-03-02] MEDS: ENALAPRIL MALEATE 2.5 MG TABLET PO SCH (09:39)
[2021-03-02] MEDS: PRENATAL VITAMINS W/ FOLIC ACID TABLET (FP) PO SCH (09:39)
== END 2021-03-02 12:00 | disposition left against medical advice (07) | DRG 770 ==
LOC: YASAS 08:34 → Y3E 15:46
PROVIDERS: ADMIT Allergy & Immunology; ATTEND Allergy & Immunology
PROC: HZ42ZZZ Group Counseling for Substance Abuse Treatment, Cognitive-Behavioral (ICD-10-PCS; principal; 2021-02-27)
DX: F16.20 Hallucinogen dependence, uncomplicated (principal); F12.20 Cannabis dependence, uncomplicated; F17.210 Nicotine dependence, cigarettes, uncomplicated; F20.9 Schizophrenia, unspecified; F32.9 Major depressive disorder, single episode, unspecified; F63.81 Intermittent explosive disorder; E11.42 Type 2 diabetes mellitus with diabetic polyneuropathy; E78.5 Hyperlipidemia, unspecified; I10 Essential (primary) hypertension; Z79.84 Long term (current) use of oral hypoglycemic drugs; Z56.0 Unemployment, unspecified; Z59.0 Homelessness
CPT/HCPCS: 36415; 80053; 82962; 85027; 86780; 87389; C9803; U0003; U0005